=== PATIENT | female | born 1955 | race Caucasian/White ===

== ENCOUNTER → 2023-02-21 | Day surgery (SDC) | payer BC ==
[~2023-02-21] VITALS: Ht 170.1 cm; Wt 70.3 kg
[2023-02-21 11:54] VITALS: BP 112/64
[2023-02-21 13:58] VITALS: BP 103/54
[2023-02-21 14:13] VITALS: BP 3113/59
[2023-02-21 14:28] VITALS: BP 115/63
== END ==
LOC: SDC 02-17 12:30
PROVIDERS: ATTEND Specialist
DX: H65.493 Other chronic nonsuppurative otitis media, bilateral (principal); H69.93 Unspecified Eustachian tube disorder, bilateral; J30.1 Allergic rhinitis due to pollen